=== PATIENT | male | born 1955 | race Native Hawaiian/Other Pacific Islander ===

== ENCOUNTER 2017-07-07 15:42 | Outpatient (CLI) | payer BC | END 2017-07-07 19:02 | disposition home or self-care (01) | LOC: LABW 15:42 | DX: K64.0 First degree hemorrhoids (principal) | CPT/HCPCS: 82272 ==

== ENCOUNTER 2018-11-02 11:31 | Day surgery (SDC) | payer BC ==
[2018-11-02 12:11] LABS: PLATELET COUNT 237 K/uL (142-355)
== END 2018-11-02 16:25 | disposition home or self-care (01) ==
LOC: OR 11:31
PROVIDERS: Internal Medicine Gastroenterology
PROC: 0DBN8ZZ Excision of Sigmoid Colon, Via Natural or Artificial Opening Endoscopic (ICD-10-PCS; principal; 2018-11-02)
DX: K63.5 Polyp of colon (principal); K57.30 Diverticulosis of large intestine without perforation or abscess without bleeding; K64.8 Other hemorrhoids; Z80.0 Family history of malignant neoplasm of digestive organs; Z12.11 Encounter for screening for malignant neoplasm of colon
CPT/HCPCS: 80053; 85027; J2001; J2250; J2704

== ENCOUNTER 2021-04-06 08:30 | Emergency (ER) | payer BC ==
[~2021-04-06] VITALS: Ht 175.3 cm; Wt 72.6 kg
[2021-04-06 08:30] VITALS: BP 138/74; TEMP 97.5
[2021-04-06 09:10] LABS: PLATELET COUNT 449 K/uL (142-355)
[2021-04-06 09:15] LABS: POTASSIUM 3.7 mmol/L (3.6-5.2)
[2021-04-06 09:26] LABS: PARTIAL THROMBOPLASTIN TIME 20.3 SECONDS (24.5-33.6)
== END 2021-04-06 14:05 | disposition still patient (30) ==
LOC: ED 08:30 → MED/SURG 10:21 → ED 14:05
PROVIDERS: Hospitalist
PROC: 0T9B70Z Drainage of Bladder with Drainage Device, Via Natural or Artificial Opening (ICD-10-PCS; principal; 2021-04-06)
DX: R55 Syncope and collapse (principal); R06.02 Shortness of breath; Z11.52 Encounter for screening for COVID-19; Z98.890 Other specified postprocedural states
CPT/HCPCS: 51702; 80053; 80307; 80320; 81000; 82550; 83880; 84484; 85027; 85610; 85730; 87635; 93005; 96360; 96361; 99284; U0003

== ENCOUNTER 2021-09-30 14:27 | Outpatient (CLI) | payer BC, OTHER ==
[2021-09-30 14:49] LABS: POTASSIUM 4.2 mmol/L (3.6-5.2)
== END 2021-09-30 19:31 | disposition home or self-care (01) ==
LOC: LABW 14:27
PROVIDERS: ATTEND Internal Medicine
DX: U07.1 COVID-19 (principal); R06.02 Shortness of breath; R53.1 Weakness
CPT/HCPCS: 36415; 80048; Q9963